=== PATIENT | male | born 1990 | race Two or more races ===

== ENCOUNTER 2020-06-10 03:11 | Emergency (ER) | payer OTHER ==
[~2020-06-10] VITALS: Ht 162.6 cm; Wt 79.4 kg
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
--- NOTE | 2020-06-10 04:26 | NUR ---
PT MEDICALLY CLEARED FOR BOOKING. Patient discharged in custody with [employer] in stable condition. Written and verbal after care instructions given. Patient verbalizes understanding of instruction.
--- NOTE | 2020-06-10 04:26 | NUR ---
Sanket ennis in ED - 06/10/20 at 0426 by LISA Patient discharged to home in stable condition. Written and verbal after care instructions given. Patient verbalizes understanding of instruction.Pt ambulatory with a steady gait
[2020-06-10 04:27] VITALS: BP 124/79
== END 2020-06-10 04:27 ==
LOC: ER 03:15
DX: S70.211A Abrasion, right hip, initial encounter (principal); S09.8XXA Other specified injuries of head, initial encounter; R07.89 Other chest pain; F10.129 Alcohol abuse with intoxication, unspecified; V49.49XA Driver injured in collision with other motor vehicles in traffic accident, initial encounter; Y93.89 Activity, other specified; Y92.413 State road as the place of occurrence of the external cause; Y99.8 Other external cause status; Y90.9 Presence of alcohol in blood, level not specified
CPT/HCPCS: 70450-TC; 71045-TC; 73501